=== PATIENT | female | born 1950 | race Caucasian/White ===

== ENCOUNTER 2022-11-18 15:20 | Outpatient (RCR) | payer MEDICARE, SELFPAY | END 2022-12-15 12:30 | disposition home or self-care (01) | LOC: PT 15:20 | DX: M75.21 Bicipital tendinitis, right shoulder (principal); M25.511 Pain in right shoulder | CPT/HCPCS: 20560; 97014; 97110; 97112; 97140; 97162 ==

== ENCOUNTER 2022-12-03 07:51 | Outpatient (RCR) | payer MEDICARE, SELFPAY | END 2022-12-18 12:41 | disposition home or self-care (01) | LOC: PT 07:51 | PROVIDERS: PCP Family Medicine; Visit Provider Family Medicine | DX: M54.6 Pain in thoracic spine (principal) | CPT/HCPCS: 20560; 97014; 97140; 97162 ==

== ENCOUNTER 2023-10-08 11:05 | Outpatient (OUT) | payer MEDICARE, SELFPAY ==
--- OUTSIDE RECORDS SUMMARY | 2023-10-08 11:28 | XMS_ITS | CCD ---
Author Organization [facility] Care Team Providers Care Warp Spinner Name Role Phone VAIBHAV ARIZA (MARJORIEC) Attending Unavail able REQUEST, NONE LISTED Admitting Unavaila ble REQUEST, NONE LISTED Attending Unavaila ble SUJATHA, DR UNIQUE Vale Primary Care Unavailable REQUEST, NONE LISTED Consulting Unavaila ble Ada Townsend Unavailable Luis Armando Bateman II Unavailable Unique Griffin Unavailable Cosmo Lawrence Unavailable DO Cosmo Lawrence Attending Provider Luis Armando Bateman II Admitting Luis Armando James II Attending UnavailCosmo Boyle Admitting Unavailable Cosmo Lawrence Attending Unavailable NON STAFF Primary Care Unavailable Allergies Allergy Classification Reported Allergen(s) Allergy Type Date of Onset Reaction(s) Facility (2 sources) OTHER; Translations: [OTHER] Propensity to adverse reactions (disorder) 03-21-19 09 [facility] (6 sources) S[facility]amide Drug Allergy 10-08-19 [facility]) Om[facility]ole Drug Allergy 10-08-19 24 Unknown, [facility] (3 sources) Substance with penicillin structure and antibacterial mechanism of action (substance) Drug allergy Comment:amoxic illin caused fatigue riskmethods Other (3 sources) Substance with sulfonamide structure and antibacterial mechanism of action (substance) Drug allergy 04-23-19 16 Unknown [facility]methods Other (3 sources) Sulf-10 Drug allergy 04-23-19 16 Unknown [facility]methods Other (1 source) Penicillins Allergy to substance 08-09-20 24 Comment:amoxic illin caused fatigue [facility] (1 source) Sulfonamides (Antibiotic) Allergy to substance 10-08-19 Hives [facility] Medications Current Medications Medication Drug Class(es) Dates Sig (Normalized) Sig (Original) amLODIPine 2.5 mg oral tablet (8 sources) Dihydropyridine Calcium Channel Page Start: 08-06-2023 End: 08-06-2023 take 2 tablets by mouth once daily Amlodipine Active 0 .ROUTE .COMPLEX 180 August 06, 2023 10:34am TAKE 2 TABLETS BY MOUTH DAILY Start: 08-06-2023 End: 08-06-2023 take 5 mg by mouth once daily Amlodipine Discontinued 5 MG PO Daily August 06, 2023 12:00am August 06, 2023 9:23am take 2 tablets by mo uth once daily amLODIPine Besylate 2.5 mg TAKE 2 TABLETS BY MOUTH DAILY for 90 Active take 1 tablet by francia th every twenty-four hours Norvasc 2.5 MG 1 tablet Orally Once a day Active benazepril hydrochloride 40 mg oral tablet (7 sources) Angiotensin Converting Enzyme Inhibitor Start: 09-03-2023 take 1 tablet by mouth once daily Benazepril Active 0 .ROUTE .COMPLEX 90 September 03, 2023 3:39pm TAKE 1 TABLET BY MOUTH DAILY Start: 09-03-2023 End: 09-03-2023 take 40 mg by mouth once daily Benazepril Discontinued 40 MG PO Daily September 03, 2023 12:00am September 03, 2023 3:39pm take 1 tablet by francia th once daily Benazepril HCl 40 mg TAKE 1 TABLET BY MOUTH DAILY for 90 Active diclofenac sodium 0.01 mg/mg topical gel (6 sources) Nonsteroidal Anti-inflammatory Drug Start: 10-08-2023 Diclofenac Sodium (Voltaren Arthritis Pain) 1 % gel Active TOPICAL October 08, 2023 12:00am FreeTextSig: apply 1-2 grams to affected area Externally up to four times daily; Note: Source Status: Taking; Refills: 2; Qty: 100 Gram; Provider: Fransico Bowling Start: 03-26-2022 Voltaren 1 % a pply 1-2 grams to affected area Externally up to four times daily for 30 days Mar, Active Start: 03-26-2022 Voltaren 1 % a pply 1-2 grams to affected area Externally up to four times daily for 30 days Mar, Active estradiol 0.5 mg oral tablet (6 sources) Estrogen Start: 10-08-2023 take 1 tablet by mouth once daily Estradiol Active 1 TAB PO Daily October 08, 2023 12:00am FreeTextSig: TAKE 1 TABLET BY MOUTH DAILY; Note: Source Status: Taking; Refills: 3; Qty: 90 Tablet; Provider: Sujatha Calhoun ( ) take 1 tablet by mouth once adriane y Estradiol 0.5 mg TAKE 1 TABLET BY MOUTH DAILY for 90 Active simvastatin 20 mg oral tablet (6 sources) HMG-CoA Reductase Inhibitor Start: 10-08-2023 take 1 tablet by mouth once daily in the evening Simvastatin Active 20 MG PO Daily October 08, 2023 12:00am FreeTextSi tablet in the evening Orally Once a day; Note: Source Status: Taking; Refills: 3; Qty: 90 Tablet; Provider: Sujatha Vale take 1 tablet by francia th every twenty-four hours Simvastatin 20 MG 1 tablet in the evenin g Orally Once a day for 90 days Active sucralfate 1000 mg oral tablet (7 sources) Aluminum Complex Start: 09-03-2023 take 1 tablet by mouth twice daily as needed Sucralfate Active 0 .ROUTE .COMPLEX 180 September 03, 2023 3:39pm TAKE 1 TABLET BY MOUTH TWICE DAILY NEEDED Start: 09-03-2023 End: 09-03-2023 take 1 g by mouth twice daily Sucralfate Discontinued 1 GM PO Twice daily September 03, 2023 12:00am September 03, 2023 3:39pm take 1 tablet by francia th twice daily as needed Sucralfate 1 GM TAKE 1 TABLET BY MOUTH TWICE DAILY NEEDED for 90 Active Completed/Discontinued Medications Medication Drug Class(es) Dates Sig (Normalized) Sig (Original) hydrocortisone 10 mg/ml / neomycin 3.5 mg/ml / polymyxin b [id number] unt/ml otic suspension (5 sources) Aminoglycoside Antibacterial, Polymyxin-class Antibacterial, Corticosteroid Start: 03-07-2022 Neomycin-Polymy odalys-HC [id number] 3 drops right ear Three times a day for 5 day(s) Mar, Not-Taking methylPREDNISolone 4 mg oral tablet (5 sources) Corticosteroid Start: 03-26-2022 Medrol 4 MG as directed Orally for 6 days Mar, Not-Taking triamcinolone acetonide 40 mg/ml injectable suspension (2 sources) Corticosteroid Start: 11-17-2022 Kenalog-40 Oct, 40 mg Problems Problem Classification Problem Date Documented Da te Episodic/Chronic Disorders of lipid metabolism (4 sources) Hyperlipidemia; Translations: [Hyperlipidemia, unspecified] Chronic Essential hypertension (3 sources) Essential hypertension; Translations: [Essential (primary) hypertension] Chronic Other acquired deformities (1 source) Other secondary scoliosis, site unspecified; Translations: [Other secondary scoliosis, site unspecified] Onset: 05-12-2018 Chronic Other connective tissue disease (1 source) Pain in left leg Episodic Other connective tissue disease (2 sources) Disorder of rotator cuff; Translations: [Unspecified rotator cuff tear or rupture of right shoulder, not specified as traumatic] Episodic Other connective tissue disease (1 source) Bicipital tendinitis, right shoulder Episodic Other connective tissue disease (1 source) Unspecified rotator cuff tear or rupture of right shoulder, not specified as traumatic Episodic Other ear and sense organ disorders (1 source) Unspecified acute noninfective otitis externa, right ear Episodic Other nervous system disorders (3 sources) Chronic pain; Translations: [Other chronic pain] Chronic Other non-traumatic joint disorders (1 source) Pain in left knee Episodic Other non-traumatic joint disorders (2 sources) Pain in right shoulder Episodic Otitis media and related conditions (1 source) Otitis media, unspecified, right ear Episodic Residual codes; unclassified (1 source) Bilateral lower limb edema; Translations: [Localized edema] 10-08-2023 Episodic Residual codes; unclassified (1 source) Localized edema; Translations: [Edema] 10-08-2023 Episodic Unclassified (1 source) Pain in right shoulder; Translations: [Pain in right shoulder] Onset: 11-17-2022 Unclassified (1 source) Pain in left knee; Translations: [Pain in left knee] Onset: 03-26-2022 Results Test Name Value Interpretation Reference Range Facility Basophils Auto (Bld) [#/Vol] on 08-23-2023 Basophils (Bld) [#/Vol] 0.1 10 3/uL 0.0-0.1 [facility] Basophils/100 WBC Auto (Bld) on 08-23-2023 Basophils/100 WBC (Bld) 1.3 % 0.2-2.0 [facility] Cholesterol in LDL Calc [Mas s/Vol]on 08-23-2023 Cholesterol in LDL [Mass/Vol] 104.0 mg/dL [facility] Comment on above: <100 mg/dl [id number] 0-129 mg/dl NEAR OR ABOVE [id number] mg/dl BORDERLINE [id number] mg/dl HIGH>190 mg/dl VERY HIGH Cholesterol in VLDL Calc [Ma ss/Vol]on 08-23-2023 Cholesterol in VLDL [Mass/Vol] 16.6 mg/dL [facility] Eosinophils/100 WBC Auto (Bl d)on 08-23-2023 Eosinophils/100 WBC (Bld) 3.8 % 0.9-7.0 [facility] Erythrocyte distribution wid th Auto (RBC) [Ratio]on 08-23-2023 Erythrocyte distribution width (RBC) [Ratio] 12.9 % 11.0-15.0 [facility] Estimated glomerular filtrat ion rate (GFR) non- Americanon 08-23-2023 GFR/1.73 sq M.predicted among non-blacks MDRD (S/P/Bld) [Vol rate/Area] mL/min/{1.73_m2} >=60 [facility] Globulin Calc (S) [Mass/Vol] on 08-23-2023 Globulin (S) [Mass/Vol] 3.6 g/dL [facility] Hematocrit Auto (Bld) [Volum e fraction]on 08-23-2023 Hematocrit (Bld) [Volume fraction] 38.5 % 36.0-48.0 [facility] Hemoglobin [Mass/volume] in Bloodon 08-23-2023 Hemoglobin (Bld) [Mass/Vol] 12.8 g/dL 12.0-16.0 [facility] Laboratory - Chemistry and C hemistry - challengeon 08-23-2023 Albumin [Mass/Vol] 3.7 g/dL 3.4-5.0 [facility] ALP [Catalytic activity/Vol] 60 U/L 46-116 [facility] ALT [Catalytic activity/Vol] 24 U/L 14-59 [facility] AST [Catalytic activity/Vol] 21 U/L 15-37 [facility] Bilirubin [Mass/Vol] 0.5 mg/dL 0.2-1.0 [facility] Calcium [Mass/Vol] 8.7 mg/dL 8.5-10.1 [facility] Chloride [Moles/Vol] 104 mmol/L 98-107 [facility] Cholesterol [Mass/Vol] 185 mg/dL <=200 [facility] Cholesterol in HDL [Mass/Vol] 65 mg/dL High 40-60 [facility] Comment on above: > or =60 mg/dl - LOW CARDIOVASCULAR RISK<40 mg/dl - HIGH CARDIOVASCULAR RISK CO2 [Moles/Vol] 30.2 mmol/L 21.0-32.0 [facility] Creatinine [Mass/Vol] 0.80 mg/dL 0.55-1.02 [facility] GFR/1.73 sq M.predicted MDRD (S/P/Bld) [Vol rate/Area] mL/min/{1.73_m2} >=60 [facility] Glucose [Mass/Vol] 89 mg/dL 74-106 [facility] Potassium [Moles/Vol] 3.6 mmol/L 3.5-5.1 [facility] Protein [Mass/Vol] 7.3 g/dL 6.4-8.2 [facility] Sodium [Moles/Vol] 142 mmol/L 136-145 [facility] Triglyceride [Mass/Vol] 83 mg/dL <=150 [facility] Urea nitrogen [Mass/Vol] 16.0 mg/dL 7.0-18.0 [facility] Urea nitrogen/Creatinine [Mass ratio] 20.0 mg/mg [facility] Laboratory - Hematology and Cell countson 08-23-2023 Immature granulocytes/100 WBC (Bld) 0.2 % 0.0-0.5 [facility] Leukocytes [#/volume] correc raimundo for nucleated erythrocytes in Blood by Automated counon 08-23-2023 WBC corrected for nucl RBC Auto (Bld) [#/Vol] 6.4 10 3/uL 4.0-11.0 [facility] Lymphocytes Auto (Bld) [#/Vo l]on 08-23-2023 Lymphocytes (Bld) [#/Vol] 1.3 10 3/uL 1.2-3.8 [facility] Lymphocytes/100 WBC Auto (Bl d)on 08-23-2023 Lymphocytes/100 WBC (Bld) 20.8 % 20.5-60.0 [facility] MCH Auto (RBC) [Entitic mass ]on 08-23-2023 MCH (RBC) [Entitic mass] 30.7 pg 26.7-34.0 [facility] MCHC Auto (RBC) [Mass/Vol]on 08-23-2023 MCHC (RBC) [Mass/Vol] 33.2 g/dL 29.9-35.2 [facility] MCV Auto (RBC) [Entitic vol] on 08-23-2023 MCV (RBC) [Entitic vol] 92.3 fL 81.0-99.0 [facility] Monocytes Auto (Bld) [#/Vol] on 08-23-2023 Monocytes (Bld) [#/Vol] 0.5 10 3/uL 0.3-0.8 [facility] Monocytes/100 WBC Auto (Bld) on 08-23-2023 Monocytes/100 WBC (Bld) 7.7 % 1.7-12.0 [facility] Neutrophils Auto (Bld) [#/Vo l]on 08-23-2023 Neutrophils (Bld) [#/Vol] 4.2 10 3/uL 1.4-6.5 [facility] Neutrophils/100 WBC Auto (Bl d)on 08-23-2023 Neutrophils/100 WBC (Bld) 66.2 % 43.0-75.0 [facility] No Panel Informationon 08-22 Eosinophils # (Auto) 0.2 10 3/uL 0.0-0.7 [facility] Immature Granulocyte # (Auto) 0.01 10 3/uL 0.00-0.03 [facility] Nucleated Red Blood Cells/100 WBC 0 [facility] Platelet mean volume Auto (B ld) [Entitic vol]on 08-23-2023 Platelet mean volume (Bld) [Entitic vol] 8.9 fL Low 9.5-13.5 [facility] Platelets Auto (Bld) [#/Vol] on 08-23-2023 Platelets (Bld) [#/Vol] 296 10 3/uL 150-450 [facility] RBC Auto (Bld) [#/Vol]on RBC (Bld) [#/Vol] 4.17 10 6/uL Low 4.20-5.40 [facility] Serum or plasma albumin/glob ulin mass ratioon 08-23-2023 Albumin/Globulin [Mass ratio] 1.0 {ratio} [facility] Serum or plasma anion gap de terminationon 08-23-2023 Anion gap [Moles/Vol] 11.4 mmol/L [facility] Serum or plasma total choles terol/high density lipoprotein (HDL) cholesterol mass tho 08-23-2023 Cholesterol.total/C holesterol in HDL [Mass ratio] 2.8 {ratio} [facility] Comment on above: 3.3 - 4.4 LOW RISK4. 4 - 7.1 AVERAGE RISK7.1 - 11.0 MODERATE RISK>11.0 HIGH RISK XR shoulder RT min 2V*on XR shoulder RT min 2V* [facility] [employer] [facility] [employer] Other XR shoulder RT min 2V* [facility] [employer] [facility] Other XR shoulder RT min 2V* [address] [place] [address] [employer] Other XR shoulder RT min 2V* [place] [address] [employer] Other XR shoulder RT min 2V* XRay Report [employer] Other XR shoulder RT min 2V* Signed [employer] Other XR shoulder RT min 2V* Patient: Alycia Thomas MR#: [id number] [employer] Other XR shoulder RT min 2V* [id number] [employer] Other XR shoulder RT min 2V* : 1950 Acct:[id number] [employer] Other XR shoulder RT min 2V* Age/Sex: 72 / F ADM Date: 11/17/22 [employer] Other XR shoulder RT min 2V* Loc: [facility] Room: Type: [facility] riskmethods Other XR shoulder RT min 2V* Attending Dr: Cosmo Lawrence DO [employer] Other XR shoulder RT min 2V* Copies to: Cosmo Lawrence DO [employer] Other XR shoulder RT min 2V* Ordering Provider: Cosmo Lawrence DO [employer] Other XR shoulder RT min 2V* Date of Service: 11/17/22 [employer] Other XR shoulder RT min 2V* XR/XR shoulder RT min 2V*: Acute pain of right shoulder [employer]methods Other XR shoulder RT min 2V* RIGHT SHOULDER - 4 views [employer]methods Other XR shoulder RT min 2V* CLINICAL HISTORY: Right shoulder pain for years. No reported injury. riskmethods Other XR shoulder RT min 2V* COMPARISON: None [facility]methods Other XR shoulder RT min 2V* AP, Y, axillary and Grashey views were obtained. There is osteopenia. There is no evidence of riskmethods Other XR shoulder RT min 2V* fracture or dislocation. Minor degenerative change is present at the acromioclavicular joint and riskmethods Other XR shoulder RT min 2V* greater tuberosity. There is thoracic dextroscoliotic curvature. A thoracic compression fracture is riskmethods Other XR shoulder RT min 2V* also seen. There are no significant soft tissue abnormalities. [employer]methods Other XR shoulder RT min 2V* XR/XR shoulder RT min 2V* [employer]methods Other XR shoulder RT min 2V* IMPRESSION: riskmethods Other XR shoulder RT min 2V* OSTEOPENIA AND MINOR DEGENERATIVE CHANGE. [employer]methods Other XR shoulder RT min 2V* NO ACUTE BONY FINDINGS. [employer]methods Other XR shoulder RT min 2V* Impression dictated by: Sandra Rivas M.D.11/17/2022 10:48 AM [employer] Other XR shoulder RT min 2V* Dictation Location: [place] [address] [employer] Other XR shoulder RT min 2V* Transcribed By: [facility] 11/17/22 1048 [employer] Other XR shoulder RT min 2V* Dictated By: Sandra Rivas MD 11/17/22 1046 [employer] Other XR shoulder RT min 2V* Signed By: [employer] Other XR shoulder RT min 2V* 11/17/22 1049 [employer] Other XR shoulder RT min 2V* [facility] Main [place] [address] [place] [address] XRay Report Signed Patient: Alycia Thomas MR#: [id number] : 1950 Acct:[id number] Age/Sex: 72 / F ADM Date: 11/17/22 Loc: [facility] Room: Type: [facility] Attending Dr: Cosmo Lawrence DO Copies to: Cosmo Lawrence DO Ordering Provider: Cosmo Lawrence DO Date of Service: 11/17/22 XR/XR shoulder RT min 2V*: Acute pain of right shoulder RIGHT SHOULDER - 4 views CLINICAL HISTORY: Right shoulder pain for years. No reported injury. COMPARISON: None AP, Y, axillary and Grashey views were obtained. There is osteopenia. There is no evidence of fracture or dislocation. Minor degenerative change is present at the acromioclavicular joint and greater tuberosity. There is thoracic dextroscoliotic curvature. A thoracic compression fracture is also seen. There are no significant soft tissue abnormalities. XR/XR shoulder RT min 2V* IMPRESSION: OSTEOPENIA AND MINOR DEGENERATIVE CHANGE. NO ACUTE BONY FINDINGS. Impression dictated by: Sandra Rivas M.D.11/17/2022 10:48 AM Dictation Location: [place] [address] Transcribed By: [facility] 11/17/22 1048 Dictated By: Sandra Rivas MD 11/17/22 1046 Signed By: 11/17/22 1048 [facility] CBC AUTO DIFFon 04-14-2022 BASO # 0.1 103/ul Normal 0.0-0.1 [facility] Comment on above: Performed By: #### D ATCBC #### [facility] [address] [place] [address] Dr. Nicole Luis Basophils/100 WBC (Bld) 1.1 % Normal 0.2-2.0 [facility] Comment on above: Performed By: #### D ATCBC #### [facility] [address] [place] [address] Dr. Nicole Luis EO # 0.2 103/ul Normal 0.0-0.7 [facility] Comment on above: Performed By: #### D ATCBC #### [facility] [address] [place] [address] Dr. Nicole Luis Eosinophils/100 WBC (Bld) 3.5 % Normal 0.9-7.0 [facility] Comment on above: Performed By: #### D ATCBC #### [facility] [address] [place] [address] Dr. Nicole Luis Erythrocyte distribution width (RBC) [Ratio] 13.2 % Normal 11.0-15.0 [facility] Comment on above: Performed By: #### D ATCBC #### [facility] [address] [place] [address] Dr. Nicole Luis Hematocrit (Bld) [Volume fraction] 38.9 % Normal 36.0-48.0 [facility] Comment on above: Performed By: #### D ATCBC #### [facility] [address] [place] [address] Dr. Nicole Luis Hemoglobin (Bld) [Mass/Vol] 13.1 g/dL Normal 12.0-16.0 [facility] Comment on above: Performed By: #### D ATCBC #### [facility] [address] [place] [address] Dr. Nicole Luis IG # 0.02 10e3/ul Normal 0.00-0.03 [facility] Comment on above: Performed By: #### D ATCBC #### [facility] [address] [place] [address] Dr. Nicole Luis IG % 0.3 % Normal 0.0-0.5 [facility] Comment on above: Performed By: #### D ATCBC #### [facility] [address] [place] [address] Dr. Nicole Luis LYMPH # 1.4 103/ul Normal 1.2-3.8 [facility] Comment on above: Performed By: #### D ATCBC #### [facility] [address] [place] [address] Dr. Nicole Luis Lymphocytes/100 WBC (Bld) 21.1 % Normal 20.5-60.0 [facility] Comment on above: Performed By: #### D ATCBC #### [facility] [address] [place] [address] Dr. Nicole Luis MCH (RBC) [Entitic mass] 30.5 pg Normal 26.7-34.0 [facility] Comment on above: Performed By: #### D ATCBC #### [facility] [address] [place] [address] Dr. Nicole Luis MCHC (RBC) [Mass/Vol] 33.7 g/dL Normal 29.9-35.2 [facility] Comment on above: Performed By: #### D ATCBC #### [facility] [address] [place] [address] Dr. Nicole Luis MCV (RBC) [Entitic vol] 90.7 fL Normal 81.0-99.0 [facility] Comment on above: Performed By: #### D ATCBC #### [facility] [address] [place] [address] Dr. Nicole Luis MONO # 0.5 103/ul Normal 0.3-0.8 [facility] Comment on above: Performed By: #### D ATCBC #### [facility] [address] [place] [address] Dr. Nicole Luis Monocytes/100 WBC (Bld) 7.2 % Normal 1.7-12.0 [facility] Comment on above: Performed By: #### D ATCBC #### [facility] [address] [place] [address] Dr. Nicole Luis NEUT # 4.4 103/ul Normal 1.4-6.5 [facility] Comment on above: Performed By: #### D ATCBC #### [facility] [address] [place] [address] Dr. Nicole Luis Neutrophils/100 WBC (Bld) 66.8 % Normal 43.0-75.0 [facility] Comment on above: Performed By: #### D ATCBC #### [facility] [address] [place] [address] Dr. Nicole Luis Platelet mean volume (Bld) [Entitic vol] 8.6 fL Critically low 9.5-13.5 [facility] Comment on above: Performed By: #### D ATCBC #### [facility] [address] [place] [address] Dr. Nicole Luis PLT 262 103/ul Normal 150-450 [facility] Comment on above: Performed By: #### D ATCBC #### [facility] [address] [place] [address] Dr. Nicole Luis RBC 4.29 106/ul Normal 4.20-5.40 [facility] Comment on above: Performed By: #### D ATCBC #### [facility] [address] [place] [address] Dr. Nicole Luis WBC 6.5 103/ul Normal 4.0-11.0 [facility] Comment on above: Performed By: #### D ATCBC #### [facility] [address] [place] [address] Dr. Nicole Luis SHAWNA- BMP WITH LIPIDon 2022 Anion gap [Moles/Vol] 5.6 mmol/L Normal [facility] Comment on above: Performed By: #### D ATBMP #### [facility] [address] [place] [address] [address] Nicole Luis Calcium [Mass/Vol] 9.0 mg/dL Normal 8.5-10.1 [facility] Comment on above: Performed By: #### D ATBMP #### [facility] [address] [place] [address] Dr. Nicole Luis Chloride [Moles/Vol] 107 mmol/L Normal 98-107 [facility] Comment on above: Performed By: #### D ATBMP #### [facility] [address] [place] [address] Dr. Nicole Luis Cholesterol [Mass/Vol] 166 mg/dL Normal <=200 [facility] Comment on above: Performed By: #### D ATBMP #### [facility] [address] [place] [address] Dr. Nicole Luis Cholesterol in HDL [Mass/Vol] 65 mg/dL Critically high 40-60 [facility] Comment on above: Performed By: #### D ATBMP #### [facility] [address] [place] [address] [address] Nicole Luis Cholesterol in LDL [Mass/Vol] 83.8 mg/dL Normal [facility] Comment on above: Performed By: #### D ATBMP #### [facility] [address] [place] [address] Dr. Nicole Luis CO2 [Moles/Vol] 32.3 mmol/L Critically high 21.0-32.0 [facility] Comment on above: Performed By: #### D ATBMP #### [facility] [address] [place] [address] Dr. Nicole Luis Creatinine [Mass/Vol] 0.69 mg/dL Normal 0.55-1.02 [facility] Comment on above: Performed By: #### D ATBMP #### [facility] [address] [place] [address] [address] Nicole Luis EGFR-AF DOMINICAN >60 Normal >=60 [facility] Comment on above: Performed By: #### D ATBMP #### [facility] [address] [place] [address] [address] Nicole Luis EGFR-NON AF DOMINICAN >60 Normal >=60 [facility] Comment on above: Performed By: #### D ATBMP #### [facility] [address] [place] [address] [address] Nicole Luis Glucose [Mass/Vol] 93 mg/dL Normal 74-106 [facility] Comment on above: Performed By: #### D ATBMP #### [facility] [address] [address] Dr[address] Nicole Luis HDL NORMAL > or = 60 mg/dl - LO W CARDIOVASCULAR RISK <40 mg/dl - HIGH CARDIOVASCULAR RISK Normal [facility] Comment on above: Performed By: #### D ATBMP #### [facility] [address] [address] [address] Nicole Luis LDL CALC NORMAL SEE BELOW Normal [facility] Comment on above: Result Comment: <100 mg/dl OPTIMAL 100 - 129 mg/dl NEAR OR ABOVE OPTIMAL 130 - 159 mg/dl BORDERLINE HIGH 160 - 189 mg/dl HIGH >190 mg/dl VERY HIGH Performed By: #### D ATBMP #### [facility] [address] [address] [address] Nicole Luis Potassium [Moles/Vol] 3.9 mmol/L Normal 3.5-5.1 [facility] Comment on above: Performed By: #### D ATBMP #### [facility] [address] [address] [address] Nicole Luis Sodium [Moles/Vol] 141 mmol/L Normal 136-145 [facility] Comment on above: Performed By: #### D ATBMP #### [facility] [address] [address] [address] Nicole Luis Triglyceride [Mass/Vol] 86 mg/dL Normal <=150 [facility] Comment on above: Performed By: #### D ATBMP #### [facility] [address] [address] [address] Nicole Luis Urea nitrogen [Mass/Vol] 10.0 mg/dL Normal 7.0-18.0 [facility] Comment on above: Performed By: #### D ATBMP #### [facility] [address] [address] [address] Nicole Luis Urea nitrogen/Creatinine [Mass ratio] 14.5 mg/mg Normal [facility] Comment on above: Performed By: #### D ATBMP #### [facility] [address] [address] [address] Nicole Luis VLDL CALC 17.2 mg/dL Normal [facility] Comment on above: Performed By: #### D ATBMP #### [facility] [address] [address] [address] Nicole Luis XR knee LT 4V*on 03-26-2022 XR knee LT 4V* [facility] [place] [address] XRay Report Signed Patient: Alycia Thomas MR#: [id number] : 1950 Acct:[id number] Age/Sex: 71 / F ADM Date: 03/26/22 Loc: [facility] [place] Room: Type: [facility] Attending Dr: Luis Armando Bateman II, MD Copies to: Luis Armando Bateman MD Ordering Provider: Luis Armando Bateman MD Date of Service: 03/26/22 XR/XR knee LT 4V*: Acute pain of left knee ([id number]) XR/XR pelvis 1-2V: Acute pain of left knee AP PELVIS: Left knee 4 views CLINICAL HISTORY: Chronic left knee pain for years COMPARISON: None Pelvis: No acute bony process significant degenerative change of the hips. Degenerative changes are seen involving the visualized lower lumbar spine, SI joints and pubic symphysis. Left knee: Vascular calcifications. Minimal knee joint effusion. No acute bony process or significant degenerative change. XR/XR pelvis 1-2V IMPRESSION: NO ACUTE BONY PROCESS OR SIGNIFICANT DEGENERATIVE CHANGES NOTED INVOLVING THE HIPS OR LEFT KNEE. Impression dictated by: Everardo Lopes Jr., D.O.03/26/2022 1:52 PM Dictation Location: RADIO-PC-12 Transcribed By: [facility] 03/26/22 1352 Dictated By: Everardo Lopes Jr, DO 03/26/22 1351 Signed By: 03/26/22 1352 Normal [facility] XR knee LT 4V* [facility] [employer] Other XR knee LT 4V* [facility] [employer] Other XR knee LT 4V* [address] [place] [address] [employer] Other XR knee LT 4V* [place] [address] No rt [employer] Other XR knee LT 4V* XRay Report [employer] Other XR knee LT 4V* Signed [employer] Other XR knee LT 4V* Patient: Alycia Thomas MR#: [id number] [employer] Other XR knee LT 4V* [id number] [employer] Other XR knee LT 4V* : 1950 Acct:[id number] [employer] Other XR knee LT 4V* Age/Sex: 71 / F ADM Date: 03/26/22 [employer] Other XR knee LT 4V* Loc: [facility] Room: Type : [facility] [employer] Other XR knee LT 4V* Attending Dr: Luis Armando Bateman II, MD [employer] Other XR knee LT 4V* Copies to: Luis Armando Bateman MD [employer] Other XR knee LT 4V* Ordering Provider: Luis Armando Bateman MD [employer] Other XR knee LT 4V* Date of Service: 03/26/22 [employer] Other XR knee LT 4V* XR/XR knee LT 4V*: Acute pain of left knee [employer] Other XR knee LT 4V* ([id number]) XR/XR pelvis 1-2V: Acute pain of left knee [employer] Other XR knee LT 4V* AP PELVIS: Left knee 4 views [employer] Other XR knee LT 4V* CLINICAL HISTORY: Chronic left knee pain for years [employer] Other XR knee LT 4V* COMPARISON: None [facility] [employer] Other XR knee LT 4V* Pelvis: No acute bon y process significant degenerative change of the hips. Degenerative changes are [employer] Other XR knee LT 4V* seen involving the visualized lower lumbar spine, SI joints and pubic symphysis. [employer] Other XR knee LT 4V* Left knee: Vascular calcifications. Minimal knee joint effusion. No acute bony process or [employer] Other XR knee LT 4V* significant degenerative change. [employer] Other XR knee LT 4V* XR/XR pelvis 1-2V [employer] Other XR knee LT 4V* IMPRESSION: [employer] [facility] [employer] Other XR knee LT 4V* NO ACUTE BONY PROCES S OR SIGNIFICANT DEGENERATIVE CHANGES NOTED INVOLVING THE HIPS OR LEFT KNEE. [employer] Other XR knee LT 4V* Impression dictated by: Everardo Lopes Jr., D.OJono03/26/2022 1:52 PM [employer] Other XR knee LT 4V* Dictation Location: RADIO-PC-12 [employer] Other XR knee LT 4V* Transcribed By: HALI 03/26/22 1352 [employer] Other XR knee LT 4V* Dictated By: Everardo Lopes Jr, 03/26/22 1351 [employer] Other XR knee LT 4V* Signed By: [employer] Other XR knee LT 4V* 03/26/22 1352 [employer] Other CNOVon 05-12-2018 CNOV Office Visit (SPMEST ) ALYCIA THOMAS ([id number]) 1950 F Date Time Provider Department 05/12/18 10:00 AM VAIBHAV ARIZA (ADELINE) SPMEST During your visit today, we recorded the following information about you: Pulse Blood pressure Weight 63/minute 108/71 69.9 kg Mckayla May Ma 05/12/2018 10:03 AM Signed [facility] - LAB FACTS [phone] LAB HOURS: Lab is open Wednesday - 7:30 am - 6 pm, Wednesday 7:30 am to 5 pm, and Wednesday 8 am -12 pm. LAB ORDERS 365 days after they are entered. If your lab orders , you may be required to wait in the lab while they are reinstated. STANDING ORDERS are recurring orders with an expiration date. The interval will indicate how often the test should be completed. FASTING LAB means nothing to eat or drink (except water) 10-12 hours before your blood is drawn. CT MRI IVP If you have one of these radiology exams ordered along with blood work, please complete the blood work at least one day prior to the scheduled exam. [facility] The pharmacy is open Wednesday - Wednesday 8 am - 6 pm. [facility] RADIOLOGY Radiology is open Wednesday - 7:30 am - 8 pm, Wednesday 7:30 am - 5 pm, and Wednesday 8 am - 12 pm. [facility] WALK-IN SCREENING MAMMOGRAPHY Walk-In mammography screenings are available Wednesday - Wednesday 3 pm - 8 pm, and Wednesday 8 am - 12 pm. No appointment is necessary. A prior doctor's order is not required. [facility] Express Care is open Wednesday - Wednesday 6 am - 9 pm, Wednesday and Wednesday 8 am - 4 pm. No appointment is necessary. Express Care is for patients ages 2 years and older. [facility] Express Care is open Wednesday - Wednesday 8 am - 8 pm, Wednesday and Wednesday 8 am - 4 pm. No appointment is necessary. Express [facility] is for patients ages 2 years and older. For Express [facility] LOCATIONS, HOURS OF OPERATION and CURRENT WAIT TIMES, visit the following link: [email or web address] R[types][0]=Express%2 0Care%20ClinicsAND Vaibhav Ariza PA-C 05/12/2018 2:51 PM Signed SPINE SURGERY NEW PATIENT PCP: Unique Griffin MD REFERRING PROVIDER:SELF SUBJECTIVE HISTORY OF PRESENT ILLNESS: Alycia Thomas is a 67 year old female presenting with spouse. CHIEF COMPLAINT: Low back pain Ms. Thomas presents to spine center for evaluation of her lower back issues Seen back in june [address] [facility] with Dr. Valverde, conservative management recommended at the time Patient did well for a while, feels the lower back pain is worse in the past year; no specific event, injury, trauma Her low back pain remains 90% of her current issues at this time, pain will progress as her activities increase She loves to garden and this will aggravate her symptoms a great deal, especially with bending, twisting Denies any current radicular symptoms down her legs She has been using an OTC pain patch which does offer some relief Not interested in prescription medications, has not been through any injections No formal course of PT PRECIPITATING EVENT: None DURATION OF SYMPTOMS: Progressive x 1 year DERMATOMAL DISTRIBUTION: N/A AMBULATORY STATUS: Independent Community Distances ANTIPLATELET OR ANTICOAGULATION STATUS: No PREVIOUS CONSERVATIVE TREATMENTS: none PREVIOUS SPINAL SURGERY: None ACTIVE PROBLEM LIST Localized Osteoarthrosis Not Specified Whether Primary Or Secondary, Hand Pain in Limb Stiffness of Joint, Not Elsewhere Classified, Upper Arm PAST MEDICAL HISTORY Diagnosis Date - ALLERGIC RHINITIS NEC PAST SURGICAL HISTORY Procedure Laterality Date - APPENDECTOMY remote - EXCISION OF LINGUAL TONSIL remote - PAST SURGICAL HISTORY OF right great toe surgery - PAST SURGICAL HISTORY OF Left thumb CMC arthroplasty with FCR tendon transfer for ligament reconstruction and tendon interposition - TOTAL ABDOM HYSTERECTOMY remote FAMILY HISTORY Problem Relation Age of Onset - Stroke Father - Diabetes Father - Heart Father - Hypertension Father - Emphysema Mother Social History Socioeconomic History Marital status: Spouse name: Not on file Number of children: Not on file Years of education: Not on file Highest education level: Not on file Social Needs Financial resource strain: Not on file Food insecurity - worry: Not on file Food insecurity - inability: Not on file Transportation needs - medical: Not on file Transportation needs - non-medical: Not on file Occupational History Not on file Tobacco Use Smoking status: Former Smoker Packs/day: 0.75 Years: 20.00 Pack years: 15 Types: Cigarettes Quit date: 03/01/2006 Years since quittin.2 Tobacco comment: quit in 2006 Substance and Sexual Activity Alcohol use: No Drug use: No Sexual activity: Not on file Other Topics Concerns: Not on file Social History Narrative Not on file ALLERGIES Allergen Reactions - Environmental [Othe* - Sulpha Drugs [Other] Rash MEDICATIONS: amLODIPine (NORVASC) 5 mg tablet Take 5 mg by mouth once daily. Benazepril HCl (LOTENSIN) 40 mg tablet Take 40 mg by mouth once daily. simvastatin (ZOCOR) 20 mg tablet Take 20 mg by mouth daily at bedtime. Estradiol (ESTRACE) 0.5 mg tablet Take 0.5 mg by mouth once daily. sucralfate (CARAFATE) 1 gram tablet Take 1 g by mouth twice daily as needed. amlodipine besylate/benazepril(L OTREL 10 MG-20 MG CAP) unsure of dose, takes every day lisinopril(PRINIVIL 20 MG TAB) Take one(1) tablet daily. tramadol hcl(ULTRAM 50 MG TAB) Take one (1) or two(2) tablets every six(6) hours as needed for pain. MULTIVITAMIN TAB Take one(1) tablet daily. rosuvastatin calcium(CRESTOR 10 MG TAB) daily IBUPROFEN 200 MG TAB aspirin/acetaminophen /caffeine(EXCEDRIN EXTRA STRENGTH 250 MG-250 MG-65 MG TAB) REVIEW OF SYSTEMS: GENERAL: No weight loss or malaise MUSCULOSKELETAL: Negative for joint pain, swelling or muscle pain NEURO: No history of headaches, syncope, paralysis, seizures or tremors OBJECTIVE: PHYSICAL EXAM BP 108/71 Pulse 63 Wt 69.9 kg (154 lb) GENERAL APPEARANCE: Well nourished, well developed, and no apparent distress. NEURO PSYCH: Patient oriented to person, place, and time. Mood pleasant. Benign affect. CARDIOVASCULAR: Palpable pulses. No edema noted. No varicosities. SKIN: Head, neck, trunk, and extremities dry, intact and without lesions. LYMPHATICS: No palpable nodes in cervical or axillae areas. Groin exam deferred. MUSCULOSKELETAL VISUAL INSPECTION CERVICAL: WNL THORACIC/LUMBAR: scoliosis PALPATION: SPINOUS PROCESS: No pain. PARASPINALS: No pain. MUSCLE BULK: Normal and symmetrical in the upper AND lower extremities. MUSCLE TONE: Normal. MOTOR: 5/5 in all muscle groups. SENSORY: Normal sensory exam GAIT: Normal. REFLEXES: +2 to bilateral U/L extremities. PROPRIOCEPTION: Normal. LONG TRACT SIGNS: No clonus. No Hoffmans. STRAIGHT LEG TEST: negative DATA REVIEW: MRI lumbar spine (04/18/18): Scoliotic curve of T/L spine with marked DDD, moderate foraminal narrowing, multiple levels XR thoracic spine (04/13/18) XR lumbar spine (04/13/18) ASSESSMENT/PLAN: Chronic low back pain; degenerative scoliosis; spondylosis with varying degrees of foraminal narrowing; neurologically intact ? PT (core strengthening) ? BMD ordered by PCP, referral to metabolic bone pending results ? Consider facet/MBB if pain does not improve with PT The majority of the visit was spent counseling and/or coordinating care for the patient. Total face to face time was 45 minutes. SIGNATURE: Vaibhav Ariza PA-C PATIENT NAME: Alycia Thomas DATE: May 12, 2018 TIME: 10:10 AM PAGER: Vaibhav Ariza PA-C 05/12/2018 2:51 PM Signed Opened in error Referring Provider: SELF [[id number]] Allergies As of Date: 05/12/2018 Noted Allergy Reaction environmental [Other] 03/21/2008 sulpha drugs [Other] 03/21/2008 2 - Rash Date Reviewed: 05/12/2018 Reviewed by: Mckayla May Ma - Fully Assessed Reason for Visit: New Patient [172] Cmt: Lower back pain >10 years Reason For Visit History Recorded Primary Visit Diagnosis:Degenerativ e scoliosis in adult patient [M41.50] Order(s):CONSULT TO PHYSICAL THERAPY [9032] Order #: [id number]: 1 Prescriptions as of 05/12/2018 Sig: AMLODIPINE 5 MG TABLET Take 5 mg by mouth once daily. BENAZEPRIL 40 MG TABLET Take 40 mg by mouth once adriane* SIMVASTATIN 20 MG TABLET Take 20 mg by mouth daily at * ESTRADIOL 0.5 MG TABLET Take 0.5 mg by mouth once david* SUCRALFATE 1 GRAM TABLET Take 1 g by mouth twice daily* LOTREL 10 MG-20 MG CAPSULE unsure of dose, takes every d* PRINIVIL 20 MG TABLET Take one(1) tablet daily. ULTRAM 50 MG TABLET Take one (1) or two(2) tablet* MULTIVITAMIN TABLET Take one(1) tablet daily. CRESTOR 10 MG TABLET daily IBUPROFEN 200 MG TABLET EXCEDRIN EXTRA STRENGTH 250 M* Problem List As Of Date 05/12/2018 Noted Resolved LOC OSTEOARTH NOS-HAND [M19.049] INVALID FOR* PAIN IN LIMB [M79.609] INVALID FOR* JOINT STIFFNESS NEC-UP/ARM [M25.629] INVALID FOR* Other instructions from your clinician: [facility] - LAB FACTS [phone] LAB HOURS: Lab is open Wednesday - 7:30 am - 6 pm, Wednesday 7:30 am to 5 pm, and Wednesday 8 am -12 pm. LAB ORDERS 365 days after they are entered. If your lab orders , you may be required to wait in the lab while they are reinstated. STANDING ORDERS are recurring orders with an expiration date. The interval will indicate how often the test should be completed. FASTING LAB means nothing to eat or drink (except water) 10-12 hours before your blood is drawn. CT MRI IVP If you have one of these radiology exams ordered along with blood work, please complete the blood work at least one day prior to the scheduled exam. [facility] The pharmacy is open Wednesday - Wednesday 8 am - 6 pm. [facility] RADIOLOGY Radiology is open Wednesday - 7:30 am - 8 pm, Wednesday 7:30 am - 5 pm, and Wednesday 8 am - 12 pm. [facility] WALK-IN SCREENING MAMMOGRAPHY Walk-In mammography screenings are available Wednesday - Wednesday 3 pm - 8 pm, and Wednesday 8 am - 12 pm. No appointment is necessary. A prior doctor's order is not required. [facility] Express Care is open Wednesday 6 am - 9 pm, Wednesday and Wednesday 8 am - 4 pm. No appointment is necessary. Express [facility] is for patients ages 2 years and older. [facility] Express Care is open Wednesday - Wednesday 8 am - 8 pm, Wednesday and Wednesday 8 am - 4 pm. No appointment is necessary. [facility] is for patients ages 2 years and older. For [facility] LOCATIONS, HOURS OF OPERATION and CURRENT WAIT TIMES, visit the following link: [email or web address] R[types][0]=Express%2 0Care%20Clin icsAND Encounter Status:Closed by VAIBHAV ARIZA PA-C on 05/12/18 Normal [facility] PROGRESSon 05-12-2018 Protein mass conc HNO ID: [id number] Author: Vaibhav Ariza Service: ? Author Type: Physician M48/M60 Tank Driver Type: Progress Notes Filed: 05/12/2018 2:51 PM Note Text: Opened in error Normal [facility] Protein mass conc HNO ID: [id number] Author: Vaibhav Ariza Service: ? Author Type: Physician M48/M60 Tank Driver Type: Progress Notes Filed: 05/12/2018 2:51 PM Note Text: SPINE SURGERY NEW PATIENT PCP: Unique Griffin MD REFERRING PROVIDER:SELF SUBJECTIVE HISTORY OF PRESENT ILLNESS: Alycia Thomas is a 67 year old female presenting with spouse. CHIEF COMPLAINT: Low back pain Ms. Thomas presents to spine center for evaluation of her lower back issues Seen back in june 2008 at spine center with Dr. Valverde, conservative management recommended at the time Patient did well for a while, feels the lower back pain is worse in the past year; no specific event, injury, trauma Her low back pain remains 90% of her current issues at this time, pain will progress as her activities increase She loves to garden and this will aggravate her symptoms a great deal, especially with bending, twisting Denies any current radicular symptoms down her legs She has been using an OTC pain patch which does offer some relief Not interested in prescription medications, has not been through any injections No formal course of PT PRECIPITATING EVENT: None DURATION OF SYMPTOMS: Progressive x 1 year DERMATOMAL DISTRIBUTION: N/A AMBULATORY STATUS: Independent Community Distances ANTIPLATELET OR ANTICOAGULATION STATUS: No PREVIOUS CONSERVATIVE TREATMENTS: none PREVIOUS SPINAL SURGERY: None ACTIVE PROBLEM LIST Localized Osteoarthrosis Not Specified Whether Primary Or Secondary, Hand Pain in Limb Stiffness of Joint, Not Elsewhere Classified, Upper Arm PAST MEDICAL HISTORY Diagnosis Date - ALLERGIC RHINITIS NEC PAST SURGICAL HISTORY Procedure Laterality Date - APPENDECTOMY remote - EXCISION OF LINGUAL TONSIL remote - PAST SURGICAL HISTORY OF right great toe surgery - PAST SURGICAL HISTORY OF Left thumb CMC arthroplasty with FCR tendon transfer for ligament reconstruction and tendon interposition - TOTAL ABDOM HYSTERECTOMY remote FAMILY HISTORY Problem Relation Age of Onset - Stroke Father - Diabetes Father - Heart Father - Hypertension Father - Emphysema Mother Social History Socioeconomic History Marital status: Spouse name: Not on file Number of children: Not on file Years of education: Not on file Highest education level: Not on file Social Needs Financial resource strain: Not on file Food insecurity - worry: Not on file Food insecurity - inability: Not on file Transportation needs - medical: Not on file Transportation needs - non-medical: Not on file Occupational History Not on file Tobacco Use Smoking status: Former Smoker Packs/day: 0.75 Years: 20.00 Pack years: 15 Types: Cigarettes Quit date: 03/01/2006 Years since quittin.2 Tobacco comment: quit in 2006 Substance and Sexual Activity Alcohol use: No Drug use: No Sexual activity: Not on file Other Topics Concerns: Not on file Social History Narrative Not on file ALLERGIES Allergen Reactions - Environmental [Othe* - Sulpha Drugs [Other] Rash MEDICATIONS: amLODIPine (NORVASC) 5 mg tablet Take 5 mg by mouth once daily. Benazepril HCl (LOTENSIN) 40 mg tablet Take 40 mg by mouth once daily. simvastatin (ZOCOR) 20 mg tablet Take 20 mg by mouth daily at bedtime. Estradiol (ESTRACE) 0.5 mg tablet Take 0.5 mg by mouth once daily. sucralfate (CARAFATE) 1 gram tablet Take 1 g by mouth twice daily as needed. amlodipine besylate/benazepril(L OTREL 10 MG-20 MG CAP) unsure of dose, takes every day lisinopril(PRINIVIL 20 MG TAB) Take one(1) tablet daily. tramadol hcl(ULTRAM 50 MG TAB) Take one (1) or two(2) tablets every six(6) hours as needed for pain. MULTIVITAMIN TAB Take one(1) tablet daily. rosuvastatin calcium(CRESTOR 10 MG TAB) daily IBUPROFEN 200 MG TAB aspirin/acetaminophen /caffeine(EXCEDRIN EXTRA STRENGTH 250 MG-250 MG-65 MG TAB) REVIEW OF SYSTEMS: GENERAL: No weight loss or malaise MUSCULOSKELETAL: Negative for joint pain, swelling or muscle pain NEURO: No history of headaches, syncope, paralysis, seizures or tremors OBJECTIVE: PHYSICAL EXAM BP 108/71 Pulse 63 Wt 69.9 kg (154 lb) GENERAL APPEARANCE: Well nourished, well developed, and no apparent distress. NEURO PSYCH: Patient oriented to person, place, and time. Mood pleasant. Benign affect. CARDIOVASCULAR: Palpable pulses. No edema noted. No varicosities. SKIN: Head, neck, trunk, and extremities dry, intact and without lesions. LYMPHATICS: No palpable nodes in cervical or axillae areas. Groin exam deferred. MUSCULOSKELETAL VISUAL INSPECTION CERVICAL: WNL THORACIC/LUMBAR: scoliosis PALPATION: SPINOUS PROCESS: No pain. PARASPINALS: No pain. MUSCLE BULK: Normal and symmetrical in the upper AND lower extremities. MUSCLE TONE: Normal. MOTOR: 5/5 in all muscle groups. SENSORY: Normal sensory exam GAIT: Normal. REFLEXES: +2 to bilateral U/L extremities. PROPRIOCEPTION: Normal. LONG TRACT SIGNS: No clonus. No Hoffmans. STRAIGHT LEG TEST: negative DATA REVIEW: MRI lumbar spine (04/18/18): Scoliotic curve of T/L spine with marked DDD, moderate foraminal narrowing, multiple levels XR thoracic spine (04/13/18) XR lumbar spine (04/13/18) ASSESSMENT/PLAN: Chronic low back pain; degenerative scoliosis; spondylosis with varying degrees of foraminal narrowing; neurologically intact ? PT (core strengthening) ? BMD ordered by PCP, referral to metabolic bone pending results ? Consider facet/MBB if pain does not improve with PT The majority of the visit was spent counseling and/or coordinating care for the patient. Total face to face time was 45 minutes. SIGNATURE: Vaibhav Ariza PA-C PATIENT NAME: Alycia Thomas DATE: May 12, 2018 TIME: 10:10 AM PAGER: Normal [facility] OT-MRI L-SPINE WO CON IMPORT on 04-18-2018 OT-MRI L-SPINE WO CON IMPORT Images were obtained outside of [facility] [id number] N Normal [facility] OT-XR L-SPINE MIN 4 VIEWS IM PORTon 04-13-2018 OT-XR L-SPINE MIN 4 VIEWS IMPORT Images were obtained outside of [facility] [id number] N Normal [facility] OT-XR T-SPINE 3 VIEWS IMPORT on 04-13-2018 OT-XR T-SPINE 3 VIEWS IMPORT Images were obtained outside of [facility] [id number] Normal [facility] Vital Signs Date Time Vital Sign Value Performing Clinician Facility 10-08-2023 10:32-0400 Body height 160.[address] [facility] 10-08-2023 10:32-0400 Body mass index (BMI) [Ratio] 26.5 kg/m2 [facility] 10-08-2023 10:32-0400 Body weight 68.[address] [facility] 10-08-2023 10:32-0400 Diastolic blood pressure 79 mm[Hg] [facility] 10-08-2023 10:32-0400 Heart rate 66 /min [facility] 10-08-2023 10:32-0400 Systolic blood pressure 136 mm[Hg] [facility] 11-17-2022 09:00-0400 Body height 160.02 cm Cosmo Lawrence Other [facility] Other 11-17-2022 09:00-0400 Body mass index (BMI) [Ratio] 26.57 kg/m2 Cosmo Isaacsley Other [employer] Other 11-17-2022 09:00-0400 Body weight 68.04 kg Cosmo Isaacsley Other [employer] Other 11-10-2022 09:00-0400 Body height 160.02 cm Unique Griffin Other [employer] Other 11-10-2022 09:00-0400 Body mass index (BMI) [Ratio] 26.82 kg/m2 Unique Griffin Other [employer] Other 11-10-2022 09:00-0400 Body weight 68.68 kg Unique Griffin Other [employer] Other 11-10-2022 09:00-0400 Diastolic blood pressure 79 mm[Hg] Unique Griffin Other [employer] Other 11-10-2022 09:00-0400 Respiratory rate 12 /min Unique Griffin Other [employer] Other 11-10-2022 09:00-0400 Systolic blood pressure 125 mm[Hg] Unique Griffin Other [facility] Other 03-26-2022 12:30-0500 Body height 167.64 cm Luis Armando Bateman II Other [facility] Other 03-26-2022 12:30-0500 Body mass index (BMI) [Ratio] 24.21 kg/m2 Luis Armando Bateman II Other [facility] Other 03-26-2022 12:30-0500 Body weight 68.04 kg Luis Armando Bateman II Other [facility] Other 03-07-2022 11:15-0500 Body height 167.64 cm Ada Townsend Other [facility] Other 03-07-2022 11:15-0500 Body mass index (BMI) [Ratio] 23.4 kg/m2 Ada Townsend Other [facility] Other 03-07-2022 11:15-0500 Body temperature 97.6 [degF] Ada Townsend Other [facility] Other 03-07-2022 11:15-0500 Body weight 65.77 kg dAa Townsend Other [facility] Other 03-07-2022 11:15-0500 Respiratory rate 18 /min Ada Townsend Other [facility] Other 03-07-2022 11:15-0500 SaO2% (BldA) [Mass fraction] 99 % Ada Townsend Other [facility] Other Encounters Encounter Date Encounter Type Care Provider Facility Start: 10-08-2023 End: 10-08-2023 ambulatory [facility] Work Phone: Start: 10-08-2023 End: 10-08-2023 Patient encounter procedure [facility] Work Phone: Start: 08-23-2023 Non-patient / Non-visit [facility] Work Phone: Start: 08-06-2023 Non-patient / Non-visit [facility] Work Phone: Start: 12-11-2022 End: 12-11-2022 ambulatory Unique Sujatha Other [facility] Other Start: 12-11-2022 Nursing evaluation o f patient and report Unique Griffin [facility] Start: 11-17-2022 Office outpatient ne w 45 minutes Cosmo Lawrence [facility] Start: 11-17-2022 End: 11-17-2022 ambulatory Cosmo Lawrence [facility] Work Phone: Start: 11-17-2022 End: 11-17-2022 Patient encounter procedure DO Cosmo Lawrence Work Phone: [facility] Start: 11-10-2022 End: 11-10-2022 ambulatory Unique Sujatha Other [facility] Other Start: 11-10-2022 Office outpatient vi sit 15 minutes Unique Sujatha [facility] Start: 04-14-2022 End: 04-15-[address] NONE LISTED REQUEST Facility: Start: 03-26-2022 Office outpatient ne w 45 minutes Luis Armando Bateman II [facility] Start: 03-26-2022 End: 03-26-2022 ambulatory Luis Armando Bowling Frans[facility] [email or web address] Other Start: 03-07-2022 End: 03-07-2022 ambulatory Ada Townsend Other [facility] Other Start: 03-07-2022 Office outpatient ne w 20 minutes Ada Townsend [facility] Start: 05-12-2018 End: 05-13-2018 Patient encounter procedure VAIBHAV FINNEGAN) LOAN [facility] Procedures Date Procedure Procedure Detail Performing Clinician Start: 11-17-2022 Plain X-ray of right shoulder DO Cosmo Lawrence Work Phone: Plan of Treatment Date Care Activity Detail Author XR Lumbar spine 2 or 3 Views [facility] XR Thoracic spine 3 Views [facility] Immunizations Immunization Date Immunization Notes Care Provider Fa kellyty 12-11-2022 influenza virus vaccine, unspecified formulation [facility] 12-11-2022 influenza, high dose seasonal, preservative-free Unique Griffin Other [facility] [employer] Other 11-04-2019 influenza virus vaccine, split virus (incl. purified surface antigen) Unique Griffin Other [facility] [employer] Other 11-04-2019 influenza virus vaccine, unspecified formulation [facility] 11-04-2019 pneumococcal polysaccharide vaccine, 23 valent Unique Griffin Other [facility] 12-24-2017 influenza virus vaccine, split virus (incl. purified surface antigen) Unique Griffin Other [facility] [employer] Other 12-24-2017 influenza virus vaccine, unspecified formulation [facility] 12-24-2017 pneumococcal conjuga te vaccine, 13 valent Unique Griffin Other [facility] Payers Date Payer Category Payer Medicare [id number] 2.1 [id number] 1957 Self-pay Unknown [id number] Unknown [id number] Unknown [id number] Social History Date Type Detail Facility Sex Assigned At [facility] [employer] Other Start: 1950 Sex Assigned At Female F [facility] Evaluation note 11-17-2022 Note Date & Type Note Facility 11-17-2022 Evaluation note Encounter Date Diagnosis Assessment Notes Oct, Acute pain of right shoulder (ICD-10 - M25.511) Oct, Biceps tendinitis of right upper extremity (ICD-10 - M75.21) Images were reviewed with the patient and possible pain etiologies were discussed. Many of the patient's symptoms are coming from injury to the biceps tendinitis and rotator cuff musculature and tendons. Treatment modalities were discussed including oral anti-inflammatori es, corticosteroid injections, physical therapy. We discussed that patient's symptoms will most likely resolve with conservative management. If the patient's symptoms persist, we will consider obtaining an MRI as well as possible surgery. Physical therapy was emphasized to the patient and performing the exercises on their own in addition to formal therapy. All questions answered and patient agreed with the treatment plan. A marcaine / kenalog cortisone injection was performed into the subacromial space under sterile technique. Patient tolerated the injection well with no adverse reaction. We will provide an order for formal physical therapy. Oct, Rotator cuff syndrome of right shoulder (ICD-10 - M75.101) [facility] Other Evaluation note 11-10-2022 Note Date & Type Note Facility 11-10-2022 Evaluation note Encounter Date Diagnosis Assessment Notes Oct, Acute pain of right shoulder (ICD-10 - M25.511) Discussed potential RC tear or strain - agrees to PT and ortho referral. Oct, Hyperlipidemia, unspecified hyperlipidemia type (ICD-10 - E78.5) chronic problem, refill sent. [facility] Other Evaluation note 03-26-2022 Note Date & Type Note Facility 03-26-2022 Evaluation note Encounter Date Diagnosis Assessment Notes Mar, Acute pain of left knee (ICD-10 - M25.562) Mar, Left leg pain (ICD-10 - M79.605) Mar, Other I had a long discussion with the patient regarding the etiology of her symptoms. I explained to her that her x-rays of the knee and the hip are essentially normal and I do not appreciate any degenerative changes. I do not have a great answer for the sharp stabbing pain that she is experiencing on the outside part of the knee. It is difficult to get a good feel on this pain because I am unable to get it reproduced on exam. The exam is overall pretty benign. At this point we will just plan to see how this changes over time. We working to get her started on an oral anti-inflammator y but given her ulcer history I will put her on a Medrol Dosepak and Voltaren gel. We will see how she does over the next several weeks and I will check back with her in 4 weeks. [facility] Other Evaluation note 03-07-2022 Note Date & Type Note Facility 03-07-2022 Evaluation note Encounter Date Diagnosis Assessment Notes Mar, Right otitis media, unspecified otitis media type (ICD-10 - H66.91) Middle ear infection: adult home care material was printed Drink plenty fluids, get plenty of rest. Take Tylenol or Motrin as needed for aches pains or fevers. Take the amoxicillin as prescribed until gone. Use the eardrops as prescribed. Follow-up with your family physician if no improvement in 2 to 3 days Mar, Acute otitis externa of right ear, unspecified type (ICD-10 - H60.501) [facility] Other Evaluation note Note Date & Type Note Facility Evaluation note No assessment information availa [facility] Work Phone: Evaluation note Note Date & Type Note Facility Evaluation note No Information [employer] website Other Evaluation note Note Date & Type Note Facility Evaluation note Diagnosis Onset Date Bilateral leg edema acute [facility] Work Phone: History general Narrative - Reported Note Date & Type Note Facility History general Narrative - Reported Type Medical History Hypertension Medical History Esophageal reflux Medical History Hiatal hernia Medical History stomach or duodenal ulcer [facility] Other History general Narrative - Reported Note Date & Type Note Facility History general Narrative - Reported Type Medical History Hypertension Medical History Esophageal reflux Medical History Hiatal hernia Medical History stomach or duodenal ulcer Surgical History APPENDECTOMY Surgical History JOSE AND BSO Surgical History TONSILLECTOMY Surgical History LEFT WRIST DISPLACED THUMB Surgical History RIGHT FOOT BONE FRAGMENT Hospitalization History SEE SURGICAL HX [facility] Other Summary Purpose Family History Relationship Condition Age at Onset Recorded Date/T sky father Heart disease Unknown Unknown Diabetes mellitus Unknown High blood cholesterol Unknown family member Unknown mother Unknown Disorder of lung Unknown Advance Directives Advance Directive Response Recorded Date/ Time Advance Directives No March 31, 2022 4:36pm Reason for Referral Reason *Waiting for appt R shoulder pain Diagnosis 1 Acute pain of right shoulder (M25.511) Referral Organization [facility] Referring Provider First Name Unique Referring Provider Last Name Sujatha Referring Provider Specialty Family Medi cine Referred Organization [facility] Referred Provider Cosmo Lawrence Referred Address [address] [place], [place],[address] Referred Provider Specialty ORTHOPEDIC S URGEON Referral Priority Routine General Notes Sue Garcia 12:38:20 PM >received today, sent P2P Chief Complaint and Reason for Visit Chief Complaint Amb Documentation fingers ankles swelling Reason for Visit Bilateral leg edema Additional Source Comments INFORMATION SOURCE (unrecogn ized section and content) DATE CREATED AUTHOR 05/14/2018 [facility] DATE CREATED AUTHOR AUTHOR'S ORGANIZ ATION 04/14/2022 [facility] DATE CREATED AUTHOR AUTHOR'S ORGANIZ ATION 11/22/[address] [facility] REASON FOR VISIT (unrecogniz ed section and content) EARACHE, SINUS CONGESTIONNP LT KNEE PAIN NXR SHOULDER PAINRight Shoulder Painflu shot Care Teams (unrecognized sec tion and content) Team Status: Inactive Member Role Status Dates Csomo Lawrence DO Attending Provider Active Team Status: Active Member Role Status Dates NON STAFF Primary Care Provider Active Team Status: Active Member Role Status Dates NON STAFF Primary Care Provider Active Start: August 06, 2023 Cyndy Barakat LPN Attending Provider Active St art: August 06, 2023 Team Status: Active Member Role Status Dates NON STAFF Primary Care Provider Active Start: August 23, 2023 Unique Griffin MD Attending Provider Active St art: August 23, 2023 Team Status: Inactive Member Role Status Dates NON STAFF Primary Care Provider Active Start: October 08, 2023 End: October 08, 2023 Unique Griffin MD Attending Provider Active St art: October 08, 2023 End: October 08, 2023 Goals (unrecognized section and content) Goals may be documented in a n alternate section FOR RECORDS PERTAINING TO PATIENTS WHO ARE OR HAVE BEEN ENROLLED IN A CHEMICAL DEPENDENCY/SUBSTANCEABUSE PROGRAM, SOME INFORMATION MAY BE OMITTED. This clinical summary was aggregated from multiple sources. Caution should be exercised in using it in the provision of clinical care. This summary normalizes information from multiple sources, and as a consequence, information in this document may materially change the coding, format and clinical context of patient data. In addition, data may be omitted in some cases. CLINICAL DECISIONS SHOULD BE BASED ON THE PRIMARY CLINICAL RECORDS. [employer] [facility]. provides no warranty or guarantee of the accuracy or completeness of information in this document.
--- NOTE | 2023-10-08 11:32 | XR_ITS ---
[address] [address] Patient Name: KEREN CRAIN MRN: [id number] date: 1950 Sex: F Assigned Patient Location: [facility] Current Patient Location: Accession/Order Number: [id number] Exam Date: 10/08/2023 11:20 Report Date: 10/12/2023 06:38 At the request of: WILLIAM SOLARES Procedure: XR lumbar spine 2-3V EXAMINATION: XR thoracic spine 2V, XR lumbar spine 2-3V HISTORY: History Of Thoracic Fracture COMPARISON: XR T-spine 04/13/2018, XR L-spine 04/13/2018 FINDINGS: BONES: Mild compression fractures of T4, T6, and T10. Moderate right convex curvature of thoracic spine and left convex curvature of thoracolumbar spine. Grade 1 left lateral listhesis of L2 on 3. Mild-moderate degenerative facet arthropathy L3-L4 through L5-S1. DISC SPACES: Marked narrowing L2-L3 and along left margin of L4-L5. Multilevel mild-moderate narrowing. PARASPINOUS: Negative. No paraspinous abnormality is seen. OTHER: Negative. XR/XR lumbar spine 2-3V IMPRESSION: 1. Stable mild compression fractures of T4, T6, T10. 2. Stable S-shaped scoliotic curvature of thoracic and lumbar spine. 3. Stable multilevel degenerative disc disease. Electronically authenticated by: KAITLIN VELEZ Date: 10/12/2023 06:38
--- NOTE | 2023-10-08 11:32 | XR_ITS ---
The [address] [address] Patient Name: KEREN CRAIN MRN: [id number] date: 1950 Sex: F Assigned Patient Location: [facility] Current Patient Location: Accession/Order Number: [id number] Exam Date: 10/08/2023 11:20 Report Date: 10/12/2023 06:38 At the request of: WILLIAM SOLARES Procedure: XR thoracic spine 2V EXAMINATION: XR thoracic spine 2V, XR lumbar spine 2-3V HISTORY: History Of Thoracic Fracture COMPARISON: XR T-spine 04/13/2018, XR L-spine 04/13/2018 FINDINGS: BONES: Mild compression fractures of T4, T6, and T10. Moderate right convex curvature of thoracic spine and left convex curvature of thoracolumbar spine. Grade 1 left lateral listhesis of L2 on 3. Mild-moderate degenerative facet arthropathy L3-L4 through L5-S1. DISC SPACES: Marked narrowing L2-L3 and along left margin of L4-L5. Multilevel mild-moderate narrowing. PARASPINOUS: Negative. No paraspinous abnormality is seen. OTHER: Negative. XR/XR thoracic spine 2V IMPRESSION: 1. Stable mild compression fractures of T4, T6, T10. 2. Stable S-shaped scoliotic curvature of thoracic and lumbar spine. 3. Stable multilevel degenerative disc disease. Electronically authenticated by: KAITLIN VELEZ Date: 10/12/2023 06:38
== END 2023-10-08 11:06 | disposition home or self-care (01) ==
PROVIDERS: PCP Family Medicine; Visit Provider Family Medicine
DX: R60.0 Localized edema (principal); M48.54XD Collapsed vertebra, not elsewhere classified, thoracic region, subsequent encounter for fracture with routine healing; M51.34 Other intervertebral disc degeneration, thoracic region
CPT/HCPCS: 72070; 72100